=== PATIENT | male | born 1985 | race Caucasian/White ===

== ENCOUNTER 2022-09-12 23:28 | Emergency (ER) | payer OTHER, SELFPAY ==
[2022-09-12 23:30] VITALS: PULSE 100; RESP 16; TEMP 36.3; O2SAT 98; BMI 54.4
[2022-09-12 23:33] VITALS: BP 187/99
--- NOTE | 2022-09-13 00:27 | RAD_ITS ---
STUDY: X-RAY - RIGHT HAND REASON FOR EXAM: Male, 36 years old. injury TECHNIQUE: 3 view(s) of the hand. COMPARISON: None. FINDINGS: Normal radiocarpal articulation. Normal distal radioulnar joint. Normal visualized carpal bones. Normal carpal articulations Normal carpometacarpal articulation of the thumb. Normal second through fifth carpometacarpal joints. Normal metacarpi. Normal metacarpophalangeal joint of the thumb. Normal interphalangeal joint of the thumb. Normal proximal and distal phalanges of the thumb. Normal metacarpophalangeal joints of the second through fifth fingers. Normal proximal and distal interphalangeal joints of the second through fifth fingers. Normal phalanges of the second through fifth fingers. The soft tissue structures are unremarkable. RAD/Hand Min 3 Views IMPRESSION: Normal x-ray examination of the hand. Electronically Signed: Barry Miranda MD at 1:06 [facility] ,
[2022-09-13] MEDS: Diphth,Pertuss(Acell),Tet Vac 0.5 ML Vial IM (00:46)
[2022-09-13] MEDS: Lidocaine 2% (20 ml mdv) 20 ML Vial INFILT (00:47)
--- NOTE | 2022-09-13 02:43 | EDS_ITS ---
HPI History of Present Illness Chief Complaint: Upper Extremity Injury Narrative Narrative: Patient is a 36-year-old male with no reported medical history. He states he works from 6:30 at night until roughly 5:30 in the morning. He reports he was at work this evening when a piece of metal bucked on him and cut his right finger. He states he is right-hand dominant. He is unsure of his tetanus status. He denies any numbness tingling or weakness but with concern he may need sutures comes in for evaluation [facility] Medical History (Updated 09/13/22 @ 02:[address] Brian Adkins, DO) Hypertension Allergy/AdvReac Type Severity Reaction Status Date / Time No Known Allergies Allergy Verified 09/12/22 23:31 Social History Smoking Status: Never smoker ROS ROS ED Constitutional Constitutional ED: Denies chills or fever(s) ENT ENT ED: Denies sore throat Cardiovascular Cardiovascular: Denies chest pain Respiratory/Chest Respiratory/Chest: Denies cough or dyspnea Gastrointestinal Gastrointestinal: Denies abdominal pain, diarrhea, nausea or vomiting Genitourinary Genitourinary ED: Denies dysuria Musculoskeletal Musculoskeletal: Reports other Details: Positive right hand/finger pain Positive right hand/finger laceration Integumentary Denies rash Neurologic Neurologic: Denies headache(s) or paresthesias Hematologic/Lymphatic Hematologic/Lymphatic: Denies easy bleeding or easy bruising EXAM Physical Exam Const Vital Signs: 09/12/22 23:30 09/12/22 23:33 Temperature 97.4 F L Temperature Source Temporal Pulse Rate 100 Respiratory Rate 16 Blood Pressure 187/99 H Blood Pressure Mean 128 Pulse Ox 98 Oxygen Delivery Method Room Air Positive well nourished, well developed and obese General Appearance ED: well developed Nutritional Appearance: obese Eyes PERRL and EOMs intact bilaterally Neck supple Resp normal respiratory effort and clear to auscultation bilaterally Cardio regular rate and regular rhythm Extremity Extremity Narrative: Right upper extremity is neurovascularly intact; AIN/PIN are intact and normal. Patient has full active range of motion. No ligamentous or tendon injury noted. Patient has a subungual hematoma to the right third digit that encompasses approximately 80% of the nailbed. There is also a jagged subcutaneous layer deep laceration to the volar aspect of the third digit finger pad that is 2.5 cm in length with minimal ooze of blood and no foreign body. Neuro oriented x3 and CN's II-XII intact bilaterally Sensorium / Orientation: alert Psych mental status grossly normal Skin Skin Narrative: Laceration to the right third finger as documented above MDM MDM MDM Narrative Medical decision making narrative: X-ray of the right hand as interpreted by the emergency medicine physician reveals no retained foreign body or acute fracture or dislocation Patient presented to the ER with a simple laceration to his right third finger. Based on the patient reporting metal cut the finger and there was also subungual hematoma there was concern for retained foreign body or open fracture so an x- ray was obtained. X-ray revealed no acute fracture or foreign body. He had a tetanus status updated and then his wound was cleaned and sutured as documented below. As he is neurovascular intact without ligamentous or tendon injury there is no need for further evaluation or emergent orthopedic consultation and he is otherwise safe for discharge Patient had the right third finger cleaned with chlorhexidine. It was anesthetized using 8 mL of 2% lidocaine without epinephrine in digital block fashion. Trephination was then performed to the middle of the nailbed with exposure of blood consistent with a subungual hematoma. The laceration was then copiously irrigated with normal saline. Then nine 4-0 Ethilon sutures were placed in simple interrupted fashion. This brought the wound together good approximation. Patient tolerated the procedure well without complication. Radiography Diagnostic Testing: Clinical Impression(s) from Imaging Studies Hand X-Ray 09/13/22 00:27 IMPRESSION: Normal x-ray examination of the hand. Electronically Signed: Barry Miranda MD at 1:06 EST Reading Location ID and State: [facility] / [place] Tel , Service support , Discharge Plan Triage Chief Complaint: Upper Extremity Injury ED Provider: Brian Adkins Dx/Rx/DC Orders Clinical Impression: Laceration of right middle finger, Subungual hematoma of fingernail Instructions: Subungual Hematoma, ED Laceration, Hand: All Closures Primary Care Provider: Care Physician,No Primary Referrals: Care Physician,No Primary [Primary Care Provider] - Activity Restrictions/Additional Instructions: Please follow-up with Workmen's Comp. or return to the ER in 7 to 10 days for suture removal Disposition Disposition: Home, Self Care Discharge Date/Time: 09/13/22 03:00
== END 2022-09-13 03:00 | disposition home or self-care (01) ==
PROVIDERS: Emergency Provider Emergency Medicine; Visit Provider Emergency Medicine
DX: S61.212A Laceration without foreign body of right middle finger without damage to nail, initial encounter (principal); I10 Essential (primary) hypertension; E66.9 Obesity, unspecified; W26.8XXA Contact with other sharp object(s), not elsewhere classified, initial encounter; Z23 Encounter for immunization
CPT/HCPCS: 12001; 73130; 90715; 96372; 99283